=== PATIENT | female | born 1990 ===

== ENCOUNTER 2020-10-22 22:11 | Emergency (ER) | payer OTHER | END 2020-10-23 00:19 | disposition home or self-care (01) | LOC: FER 22:11 | DX: F41.0 Panic disorder [episodic paroxysmal anxiety] (principal); R05 Cough; E78.5 Hyperlipidemia, unspecified; F17.210 Nicotine dependence, cigarettes, uncomplicated; Z88.1 Allergy status to other antibiotic agents; Z87.09 Personal history of other diseases of the respiratory system; Z79.84 Long term (current) use of oral hypoglycemic drugs; Z98.890 Other specified postprocedural states; Z79.899 Other long term (current) drug therapy | CPT/HCPCS: 99284 ==